=== PATIENT | male | born 1945 | race American Indian/Alaskan Native ===

== ENCOUNTER 2018-01-20 17:17 | Emergency (ER) | payer MEDICARE ==
[2018-01-20 17:29] VITALS: BP 122/81; PULSE 96; RESP 18; TEMP 97.8; O2SAT 100
--- NOTE | 2018-01-20 18:02 | C.PDOC ---
History Of Present Illness 72 year old male presents to the ED BIBA status post being found driving around with a flat tire in [facility]. Patient was reported missing at 1900 one day ago by family. As per daughter, patient has a history of dementia. Patient states he feels lightheaded. Reports his last meal was yesterday and he typically eats one meal a day. Denies any other physical complaints. Time Seen by Provider: 01/20/18 17:18 Chief Complaint (Nursing): Medical Clearance History Per: Patient, EMS, Family (daughter ) History/Exam Limitations: clinical condition Onset/Duration Of Symptoms: Days Current Symptoms Are (Timing): Still Present Past Medical History Reviewed: Historical Data, Nursing Documentation, Vital Signs Vital Signs: Last Vital Signs Temp 97.8 F 01/20/18 17:21 Pulse 96 H 01/20/18 17:21 Resp 18 01/20/18 17:21 BP 122/81 01/20/18 17:21 Pulse Ox 100 01/20/18 17:21 - Medical History PMH: Dementia, HTN Surgical History: Pacemaker Family History: States: No Known Family Hx - Social History Hx Alcohol Use: Yes Hx Substance Use: No - Immunization History Hx Tetanus Toxoid Vaccination: No Hx Influenza Vaccination: No Hx Pneumococcal Vaccination: No Review Of Systems Cardiovascular: Positive for: Light Headedness Physical Exam - Physical Exam Appears: Toxic, Other (thin-appearing ) Skin: Warm, Dry Head: Normacephalic Eye(s): bilateral: Normal Inspection Neck: Normal ROM Chest: Symmetrical Cardiovascular: Rhythm Regular Respiratory: Normal Breath Sounds, No Rales, No Rhonchi, No Wheezing Gastrointestinal/Abdominal: Soft, No Tenderness Extremity: Normal ROM Neurological/Psych: Oriented x3, Normal Speech Gait: Steady ED Course And Treatment O2 Sat by Pulse Oximetry: 100 (RA) Pulse Ox Interpretation: Normal Progress Note: Accu-chek done. Patient is comfortable and is in no acute distress. Patient ready and stable for discharge. Disposition - Disposition Referrals: [facility] [Outside] Disposition: HOME/ ROUTINE Disposition Time: 18:00 Condition: STABLE Additional Instructions: FOLLOW UP WITH YOUR DOCTOR IN 1-2 DAYS RETURN TO ER IF YOU HAVE ANY CONCERNING SYMPTOMS Forms: [facility] (Zambian), General Discharge Instructions Print Language: TRISTANIAN - POA Present On Arrival: None - Clinical Impression Clinical Impression: Medical assessment - Scribe Statement The provider has reviewed the documentation as recorded by the Scribe Hiwot Viveros All medical record entries made by the Scribe were at my direction and personally dictated by me. I have reviewed the chart and agree that the record accurately reflects my personal performance of the history, physical exam, medical decision making, and the department course for this patient. I have also personally directed, reviewed, and agree with the discharge instructions and disposition.
== END 2018-01-20 18:10 | disposition home or self-care (01) ==
LOC: C.ER 17:17
DX: Z04.89 Encounter for examination and observation for other specified reasons (principal); F03.90 Unspecified dementia, unspecified severity, without behavioral disturbance, psychotic disturbance, mood disturbance, and anxiety; I10 Essential (primary) hypertension; Z95.0 Presence of cardiac pacemaker; F17.210 Nicotine dependence, cigarettes, uncomplicated